=== PATIENT | female | born 1940 | race Hispanic/Latino ===

== ENCOUNTER 2017-08-18 08:03 | Outpatient (CLI) | payer MEDICARE, BC ==
--- NOTE | 2017-08-18 12:12 | NM ---
RADIONUCLIDE STRESS REST MYOCARDIAL PERFUSION SCAN WITH CT ATTENUATION CORRECTION AND SPECT IMAGING LEFT VENTRICULAR WALL MOTION EVALUATION AND EJECTION FRACTION: History: Chest pain. FINDINGS: Lexiscan protocol was used. There is heterogeneous uptake of radiotracer throughout the left ventricu lar myocardium without focal perfusion defect or reversibility. QGS analysis of gated SPECT images sh ows no focal wall motion abnormalities. Left ventricular ejection fraction is calculated at 77%. IMPRESSION: Normal myocardial perfusion scan. Normal LVEF. POS: MAX
[2017-08-18] MEDS ORDERED: Regadenoson 0.4 MG/5 ML SYRINGE ONE (14:57)
== END 2017-08-18 08:04 | disposition home or self-care (01) ==
LOC: NM 08:03
PROVIDERS: ATTEND Internal Medicine
DX: R07.9 Chest pain, unspecified (principal)
CPT/HCPCS: 78452; 93017; A9500; J2785

== ENCOUNTER 2018-03-04 13:47 | Outpatient (CLI) | payer MEDICARE, BC | END 2018-03-04 13:48 | disposition home or self-care (01) | LOC: BICMAMMO 13:47 | PROVIDERS: ATTEND Obstetrics & Gynecology | DX: Z12.31 Encounter for screening mammogram for malignant neoplasm of breast (principal) | CPT/HCPCS: 77063; 77067 ==

== ENCOUNTER 2018-05-16 08:10 | Outpatient (CLI) | payer MEDICARE, BC ==
--- NOTE | 2018-05-16 14:05 | NM ---
RADIONUCLIDE GASTRIC EMPTYING SCAN: HISTORY: Nausea. Abdominal pain. Bloating. TECHNIQUE: A gastric emptying scan was performed following the oral administration of 2 millicuries of technetiu m 99m sulfur colloid in oatmeal. FINDINGS: There is 94% emptying of the ingested gastric contents at 30 minutes, 98% emptying at 60 minutes, and 99% emptying at 2 hours. The calculated gastric emptying half-time measures 19 minutes. IMPRESSION: Rapid gastric emptying. POS: C
== END 2018-05-16 08:11 | disposition home or self-care (01) ==
LOC: NM 08:10
PROVIDERS: ATTEND Internal Medicine
DX: R11.0 Nausea (principal)
CPT/HCPCS: 78264; A9541

== ENCOUNTER 2018-09-23 10:58 | Outpatient (CLI) | payer MEDICARE, BC ==
[2018-09-23 12:45] LABS: Estimated GFR-MDRD - POC Greater than 90
[2018-09-23] MEDS ORDERED: Iopamidol 370 76% 100 ML VIAL ONE (13:40)
--- NOTE | 2018-09-23 15:13 | CT ---
CTA NECK WITH CONTRAST: HISTORY: TIA. Chest pain and visual changes. COMPARISON: None. TECHNIQUE: Multiple contiguous axial images were obtained in a CTA neck with contrast, with 3D sagittal and danielle nal MIP reformats performed. FINDINGS: The common carotid arteries have a normal origin from the aortic arch. No significant atheroscleroti c disease is seen in the common carotid arteries. The subclavian arteries are also normal in appeara nce without significant atherosclerotic disease. A small amount of plaque is seen at the proximal aspect of both internal carotid arteries. There is less than 10% stenosis bilaterally in the internal carotid arteries, per NASCET criteria. No plaque is seen in the distal internal carotid arteries. Both vertebral arteries form a normal appearing basilar artery. No significant atherosclerotic disea se is seen within the vertebral arteries. IMPRESSION: Minimal bilateral internal carotid artery atherosclerotic disease without significant stenosis. POS: [place]
== END 2018-09-23 10:59 | disposition home or self-care (01) ==
LOC: CT 10:58
PROVIDERS: ATTEND Internal Medicine
DX: G45.9 Transient cerebral ischemic attack, unspecified (principal); R07.9 Chest pain, unspecified; I65.23 Occlusion and stenosis of bilateral carotid arteries; I08.1 Rheumatic disorders of both mitral and tricuspid valves
CPT/HCPCS: 70498; 82565; 93306; Q9967

== ENCOUNTER 2018-09-28 09:41 | Outpatient (CLI) | payer MEDICARE, BC ==
--- NOTE | 2018-09-29 13:41 | CT ---
FCT coronary angiogram with and without contrast: 09/28/2018 HISTORY: 77-year-old female with history of TIA presents with chest pain. Screening for coronary atherosclerot ic disease. TECHNIQUE: Precontrast scan of the heart. IV injection of 100 mL Isovue-370. Multiple scans through the heart post contrast. 3-D volume rendering reconstructions. 3-D nip reconstructions. FINDINGS: Coronary calcium score: Left anterior descendin Left circumflex: 19 Right coronary: 4 Total Agatston score: 243 Risk: Moderate. Moderate calcium is detected in the coronary arteries and confirms the presence of at herosclerotic plaque. A moderate risk of having a cardiovascular event exists. The score of 243 is at the 85th percentile for females of this age group. Coronary arteries: Left Main: No significant stenosis. Left anterior descending: Focal calcified plaque 2 - 2.5 cm distal to origin, in proximal LAD, causin g ljng-wh-nlywjnag stenosis. Focal calcified plaque at mid LAD 4 to 4.5 cm distal to origin causing s evere stenosis. Left circumflex: Focal calcified plaque 3 cm from the origin causing moderate to severe stenosis. No evidence of significant stenosis caused by noncalcified plaque. No significant stenosis of right coronary. No thrombus in the left atrial appendage. No thoracic aortic aneurysm or dissection. No cardiomegaly or pericardial effusion. No atrial septal defect or ventricular septal defect. IMPRESSION: 1. Agatston score of 243. See above comments. 2. High-grade coronary artery stenosis in the left anterior descending and left circumflex arteries.
== END 2018-09-28 09:42 | disposition home or self-care (01) ==
LOC: BICCT 09:41
PROVIDERS: ATTEND Internal Medicine
DX: R07.9 Chest pain, unspecified (principal); G45.9 Transient cerebral ischemic attack, unspecified; I25.10 Atherosclerotic heart disease of native coronary artery without angina pectoris
CPT/HCPCS: 75574

== ENCOUNTER 2019-03-20 15:30 | Outpatient (CLI) | payer MEDICARE, BC ==
--- NOTE | 2019-03-20 17:21 | MMO ---
Bilateral MAMMO Bilat Screen [facility]. CLINICAL HISTORY: Patient is 78 years old and is seen for screening. The patient has no family history of breast cancer. The patient has no personal history of cancer. VIEWS: The views performed were: bilateral craniocaudal with tomosynthesis and bilateral mediolateral oblique with tomosynthesis. FILMS COMPARED: The present examination has been compared to prior imaging studies performed at [facility] on 04/21/2016, 11/26/2016 and 03/04/2018, and at [facility] on 03/13/2015. This study has been interpreted with the assistance of computer-aided detection. MAMMOGRAM FINDINGS: There are scattered fibroglandular densities. There is a stable lobular mass seen in the sub-areolar region of the right breast. There are no suspicious masses, calcifications or areas of architectural distortion. There are no suspicious masses, suspicious calcifications, or new areas of architectural distortion. IMPRESSION: THERE IS NO MAMMOGRAPHIC EVIDENCE OF MALIGNANCY. A ROUTINE FOLLOW-UP MAMMOGRAM IN 1 YEAR IS RECOMMENDED. THE RESULTS OF THIS EXAM WERE SENT TO THE PATIENT. ACR BI-RADS Category 2 - Benign finding MAMMOGRAPHY NOTE: 1. A negative mammogram report should not delay a biopsy if a dominant of clinically suspicious mass is present. 2. Approximately 10% to 15% of breast cancers are not detected by mammography. 3. Adenosis and dense breasts may obscure an underlying neoplasm. Reported by: EVIN ZAVALA MD Electonically Signed: [id number]
== END 2019-03-20 15:31 | disposition home or self-care (01) ==
LOC: BICMAMMO 15:30
PROVIDERS: ATTEND Obstetrics & Gynecology
DX: Z12.31 Encounter for screening mammogram for malignant neoplasm of breast (principal)
CPT/HCPCS: 77063; 77067

== ENCOUNTER 2020-04-01 16:12 | Outpatient (CLI) | payer MEDICARE, BC ==
--- NOTE | 2020-04-01 16:35 | MMO ---
Bilateral MAMMO Bilat Screen [facility]. CLINICAL HISTORY: Patient is 79 years old and is seen for screening. The patient has no family history of breast cancer. The patient has no personal history of cancer. VIEWS: The views performed were: bilateral craniocaudal with tomosynthesis and bilateral mediolateral oblique with tomosynthesis. FILMS COMPARED: The present examination has been compared to prior imaging studies performed at [facility] on 04/21/2016, 11/26/2016, 03/04/2018 and 03/20/2019. This study has been interpreted with the assistance of computer-aided detection. MAMMOGRAM FINDINGS: There are scattered fibroglandular densities. There are benign appearing calcifications seen in both breasts. There are no suspicious masses, suspicious calcifications, or new areas of architectural distortion. IMPRESSION: THERE IS NO MAMMOGRAPHIC EVIDENCE OF MALIGNANCY. A ROUTINE FOLLOW-UP MAMMOGRAM IN 1 YEAR IS RECOMMENDED. THE RESULTS OF THIS EXAM WERE SENT TO THE PATIENT. ACR BI-RADS Category 2 - Benign finding MAMMOGRAPHY NOTE: 1. A negative mammogram report should not delay a biopsy if a dominant of clinically suspicious mass is present. 2. Approximately 10% to 15% of breast cancers are not detected by mammography. 3. Adenosis and dense breasts may obscure an underlying neoplasm. Reported by: MILVIA KAUFMAN MD Electonically Signed: [id number]
== END 2020-04-01 16:13 | disposition home or self-care (01) ==
LOC: BICMAMMO 16:12
PROVIDERS: ATTEND Obstetrics & Gynecology
DX: Z12.31 Encounter for screening mammogram for malignant neoplasm of breast (principal)
CPT/HCPCS: 77063; 77067

== ENCOUNTER 2020-10-22 14:13 | Outpatient (CLI) | payer MEDICARE, BC ==
[~2020-10-22 14:13] MED LIST: Iopamidol 370 76% 100 ML VIAL ONE
== END 2020-10-22 14:14 | disposition home or self-care (01) ==
LOC: BICCT 14:13
PROVIDERS: ATTEND Internal Medicine Gastroenterology
DX: R10.31 Right lower quadrant pain (principal); G89.29 Other chronic pain
CPT/HCPCS: 74177; 82565; Q9967

== ENCOUNTER 2021-06-03 08:18 | Outpatient (CLI) | payer MEDICARE, BC | END 2021-06-03 08:19 | disposition home or self-care (01) | LOC: BICMAMMO 08:18 | PROVIDERS: ATTEND Obstetrics & Gynecology | DX: Z12.31 Encounter for screening mammogram for malignant neoplasm of breast (principal) | CPT/HCPCS: 77063; 77067 ==

== ENCOUNTER 2022-07-14 15:34 | Outpatient (CLI) | payer MEDICARE, BC | END 2022-07-14 15:35 | disposition home or self-care (01) | LOC: BICMAMMO 15:34 | PROVIDERS: ATTEND Obstetrics & Gynecology | DX: Z12.31 Encounter for screening mammogram for malignant neoplasm of breast (principal) | CPT/HCPCS: 77063; 77067 ==